=== PATIENT | male | born 1960 | race Caucasian/White ===

== ENCOUNTER 2023-02-07 18:21 | Inpatient (IN) | payer BC, SELFPAY ==
[~2023-02-07] VITALS: Ht 175.3 cm; Wt 106.8 kg
[2023-02-07] MEDS ORDERED: normal saline 1000ml 1,000 ML IV ONE (20:25)
[2023-02-07] MEDS ORDERED: ketorolac tromethamine 15mg/ml inj. IV ONE (20:25)
[2023-02-07] MEDS ORDERED: morphine 4 MG/ML inj SYRINge IV ONE ×2 (20:25→22:55)
[2023-02-07] MEDS ORDERED: ondansetron/PF 4mg/2ml inj IV ONE ×2 (20:25→22:55)
[2023-02-07 20:54] LABS: BASOPHILS # (AUTO) 0.1 X10'3 (0-0.2); BASOPHILS % (AUTO) 0.5 % (0-1); EOSINOPHILS % (AUTO) 0.3 % (0-6); HEMOGLOBIN 16.4 g/dl (14.0-17.9); LYMPHOCYTES # (AUTO) 1.2 X10'3 (1.1-4.8); LYMPHOCYTES % (AUTO) 7.7 % (21-51); MEAN CORPUSCULAR HEMOGLOBIN 28.4 PG (27.0-31.0); MEAN CORPUSCULAR HGB CONC 33.4 g/dL (33.0-36.5); MEAN PLATELET VOLUME 8.3 FL (7.4-10.4); MONOCYTES # (AUTO) 0.9 X10'3 (0-0.9); MONOCYTES % (AUTO) 5.6 % (2-12); NEUTROPHILS # (AUTO) 13.7 X10'3 (1.8-7.7); NEUTROPHILS % (AUTO) 85.9 % (42-75); PLATELET COUNT 167 X10'3 (140-440); RED BLOOD COUNT 5.77 X10'6 (4.70-6.10); RED CELL DISTRIBUTION WIDTH 14.3 % (11.5-14.5); WHITE BLOOD COUNT 15.9 X10'3 (4.5-11.0)
[2023-02-07 21:08] LABS: ALANINE AMINOTRANSFERASE 34 U/L (12-78); ALBUMIN 4.1 G/DL (3.4-5.0); ALBUMIN/GLOBULIN RATIO 1.4 (1.1-1.5); ALKALINE PHOSPHATASE 75 IU/L (46-116); ANION GAP 12 (8-16); ASPARTATE AMINO TRANSFERASE 26 U/L (10-37); BILIRUBIN,TOTAL 0.6 MG/DL (0.1-1.0); BLOOD UREA NITROGEN 23 MG/DL (7-18); BUN/CREATININE RATIO 12.6 (10.0-20.0); CALCIUM 8.7 MG/DL (8.5-10.1); CHLORIDE 106 MMOL/L (99-107); CREATININE 1.83 MG/DL (0.60-1.10); GLUCOSE 124 MG/DL (70-104); LIPASE < 50 U/L (73-393); POTASSIUM 4.4 MMOL/L (3.5-5.1); SODIUM 144 MMOL/L (135-145); TOTAL CARBON DIOXIDE 26.1 MMOL/L (24-32); eGFR 37 ML/MIN
[2023-02-07] MEDS ORDERED: CefTRIAXone 2gm/D5W 50ml BAG 50 ML IV ONE (22:35)
[2023-02-07 23:00] LABS: CLARITY,URINE SLIGHTLY CLOUDY (Clear); COLOR,URINE YELLOW (Yellow); GLUCOSE, URINE NEGATIVE (Neg); KETONES,URINE NEGATIVE (Neg); LEUKOCYTE ESTERASE ,URINE TRACE (Neg); NITRITES, URINE NEGATIVE (Neg); OCCULT BLOOD,URINE LARGE (Neg); PROTEIN,URINE 30 mg/dl (Neg); UROBILINOGEN,URINE 0.2 E.U/dL (0.2-1.0)
[2023-02-07 23:17] LABS: UA COLLECTION TYPE CLN CATCH MIDSTREAM
[2023-02-07 23:22] LABS: BACTERIA,URINE NONE SEEN /HPF (Neg); MUCUS STRANDS MODERATE /LPF (Neg); RBC,URINE 50-100 /HPF (0-2); SQUAMOUS EPITHELIAL CELL,UR FEW /LPF (FEW); WBC,URINE 0-4 /HPF (0-4)
[2023-02-07 23:23] LABS: SPERM FEW /HPF (NEGATIVE)
[2023-02-07] MEDS ORDERED: acetaminophen 325mg tablet PO PRN (23:40)
[2023-02-07] MEDS ORDERED: magnesium hydroxide 30ml (MOM) UD suspension PO PRN (23:40)
[2023-02-07] MEDS ORDERED: magnesium 2GM in 50ml NS 50 ML IV PRN (23:40)
[2023-02-07] MEDS ORDERED: morphine 2 MG/ML inj. syringe IV PRN (23:40)
[2023-02-07] MEDS ORDERED: mag hydrox/Alum hydrox/simeth 30ml oral suspension PO PRN (23:40)
[2023-02-07] MEDS ORDERED: magnesium 4gm in 100ml NS 100 ML IV PRN (23:40)
[2023-02-07] MEDS ORDERED: potassium Cl 20 mEq SR tablet PO PRN ×2 (23:40)
[2023-02-07] MEDS ORDERED: potassium Cl 40MEQ/1/2NS 520ml 520 ML IV PRN (23:40)
[2023-02-07] MEDS ORDERED: ondansetron/PF 4mg/2ml inj IV PRN (23:40)
[2023-02-07] MEDS ORDERED: magnesium Cl slow-release 64mg tablet PO PRN (23:40)
[2023-02-08] VITALS (21 sets, daily range): BP systolic 127–177; BP diastolic 77–105
--- NOTE | 2023-02-08 00:47 | NUR ---
Report given to me by Shirley in the ER on the phone and I will give report to Elodia EDWARDS when she is back from lunch.
[2023-02-08] MEDS: potassium Cl 20mEq in NS 1,000 ML IV SCH ×3 (01:11→23:50)
--- NOTE | 2023-02-08 02:16 | NUR ---
RC'D REPORT FROM FALL INTERN AND ASSUMED CARE OF PATIENT. RESTING IN BED AT THIS TIME, STATES PAIN 2/10. EDUCATED ON HOSPITAL ROUTINE, PLAN FOR SURG AT 0900 AND SKIN CHECK COMPLETED. NS INFUSING ORDERED. PATIENT GIVEN BASIN OF WATER AND BATHED IN BATHROOM WHILE LINEN CHANGED ON BED. SKIN WIPED DOWN WITH CHLORHEXIDINE FOR SURG AND RESTING COMFORTABLY AT THIS TIME. WILL CHECK WITH PATIENT AND ASSESS PAIN LEVEL WHEN ABLE TO HAVE PAIN MEDS. 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
--- NOTE | 2023-02-08 06:39 | NUR ---
Problems reprioritized. Patient report given, questions answered & plan of care reviewed with WILFRID EDWARDS. WILFRID AWARE ZAIRE ALEXANDRE/FRIEND WILL BE IN TO CLOCK ASSEMBLER PATIENT'S WALLET WITH MONEY AND CREDIT CARDS WELL KEYS TO HIS CAR THAT IS IN THE ER PARKING AREA, SHE WILL MOVE HIS CARE OUT OF THAT AREA. SECURITY NOTIFIED PATIENT IS ADMITTED TO THIS UNIT WELL THE MAKE AND MODEL OF HIS CARE.
[2023-02-08 07:31] LABS: BASOPHILS % (AUTO) 0.4 % (0-1); EOSINOPHILS # (AUTO) 0.1 X10'3 (0-0.9); EOSINOPHILS % (AUTO) 1.5 % (0-6); HEMATOCRIT 45.2 % (42.0-52.0); HEMOGLOBIN 15.1 g/dl (14.0-17.9); LYMPHOCYTES # (AUTO) 2.4 X10'3 (1.1-4.8); LYMPHOCYTES % (AUTO) 24.3 % (21-51); MEAN CORPUSCULAR HEMOGLOBIN 28.7 PG (27.0-31.0); MEAN CORPUSCULAR HGB CONC 33.4 g/dL (33.0-36.5); MEAN CORPUSCULAR VOLUME 85.8 FL (78-98); MEAN PLATELET VOLUME 8.7 FL (7.4-10.4); MONOCYTES # (AUTO) 0.6 X10'3 (0-0.9); MONOCYTES % (AUTO) 6.2 % (2-12); NEUTROPHILS # (AUTO) 6.6 X10'3 (1.8-7.7); NEUTROPHILS % (AUTO) 67.6 % (42-75); PLATELET COUNT 166 X10'3 (140-440); RED BLOOD COUNT 5.27 X10'6 (4.70-6.10); RED CELL DISTRIBUTION WIDTH 14.5 % (11.5-14.5); WHITE BLOOD COUNT 9.7 X10'3 (4.5-11.0)
[2023-02-08 07:38] LABS: ALANINE AMINOTRANSFERASE 34 U/L (12-78); ALBUMIN 3.6 G/DL (3.4-5.0); ALBUMIN/GLOBULIN RATIO 1.3 (1.1-1.5); ALKALINE PHOSPHATASE 67 IU/L (46-116); ANION GAP 12 (8-16); ASPARTATE AMINO TRANSFERASE 23 U/L (10-37); BILIRUBIN,TOTAL 0.5 MG/DL (0.1-1.0); BLOOD UREA NITROGEN 20 MG/DL (7-18); BUN/CREATININE RATIO 13.2 (10.0-20.0); CALCIUM 8.5 MG/DL (8.5-10.1); CHLORIDE 109 MMOL/L (99-107); CREATININE 1.51 MG/DL (0.60-1.10); GLUCOSE 98 MG/DL (70-104); MAGNESIUM 2.1 MG/DL (1.5-2.4); POTASSIUM 4.3 MMOL/L (3.5-5.1); SODIUM 147 MMOL/L (135-145); TOTAL CARBON DIOXIDE 25.8 MMOL/L (24-32); TOTAL PROTEIN 6.4 G/DL (6.4-8.2); eGFR 47 ML/MIN
[2023-02-08] MEDS: K and/or MAG REPLACEMENT MC SCH ×2 (08:00→20:00)
[2023-02-08] MEDS ORDERED: docusate sod 100mg capsule PO SCH (08:00)
[2023-02-08] MEDS ORDERED: ringers solution, lacted 1,000 ML IV SCH (08:05)
[2023-02-08] MEDS ORDERED: ondansetron/PF 4mg/2ml inj IV PRN (08:05)
[2023-02-08] MEDS ORDERED: fentaNYL/PF 50MCG/1 ML 2ML syringe IV PRN ×2 (08:05)
[2023-02-08] MEDS ORDERED: hydrALAZINE 20mg/ml inj. IV PRN (08:05)
[2023-02-08] MEDS ORDERED: labetalol 20mg/4ml (5mg/ml) syringe IV PRN (08:05)
[2023-02-08] MEDS ORDERED: morphine 4 MG/ML inj SYRINge IV PRN (08:05)
[2023-02-08] MEDS ORDERED: morphine 2 MG/ML inj. syringe IV PRN (08:05)
[2023-02-08] MEDS: CefTRIAXone/D5W-Rocephin 1gm 50 ML IV SCH (08:14)
[2023-02-08] MEDS: morphine 2 MG/ML inj. syringe IV PRN ×2 (08:22→22:24)
[2023-02-08] MEDS ORDERED: fentaNYL/PF 50MCG/1 ML 2ML syringe ONE (08:47)
[2023-02-08] MEDS ORDERED: propofol inj 20 ML IV ONE (08:47)
[2023-02-08] MEDS ORDERED: midazolam 1 mg/ML 2ml injection ONE (08:47)
[2023-02-08] MEDS ORDERED: LIDOcaine 2% (20mg/ml) 5ml vial ONE (08:48)
[2023-02-08] MEDS ORDERED: ondansetron/PF 4mg/2ml inj ONE (08:49)
[2023-02-08] MEDS ORDERED: dexamethasone sod phosphate 4mg/ml inj. ONE (08:49)
[2023-02-08] MEDS ORDERED: sevoflurane 250ml liquid IH ONE (09:05)
[2023-02-08] MEDS ORDERED: iohexol 300 MG/1 ML 50ml polymer ONE (09:06)
--- NOTE | 2023-02-08 10:10 | NUR ---
NURSING RECEIVED A LATE CALL FROM OR AND ARRIVED SHORTLY AFTER 1000. ANESTHESIA WAS IN WITH PT WHEN NURSING ARRIVED: Received from OR via HOSPITAL BED, accompanied by Anesthesiologist DR OSBORNE and report given by Anesthesiologist. PT IS AWAKE AND ANSWERING QUESTIONS APPROPRIATELY AND FOLLOWING COMMANDS. PT IS ON BEDSIDE MONITOR AND VSS. PT IS RECEIVING 8L O2 TO MASK AND TOLERATING WILL WITH O2 SAT >95%. WILL TITRATE DOWN PT TOLERATES. PT HAS 20G PIV TO RT AC WITH LR INFUSING ORDERED. PT DENIES PAIN AT THIS TIME AND HAS NO C/O OF NAUSEA. WILL CONTINUE TO ASSESS.
--- NOTE | 2023-02-08 11:01 | NUR ---
PATIENT HAS MET ALL CRITERIA FOR TRANSFER TO THE ORTHO FLOOR. VSS. DRESSINGS INTACT. BED LOW, CALL LIGHT PRESENT AND 2 RAILS UP. RN PRESENT TO ACCEPT CARE OF PATIENT AND REPORT HAS BEEN CALLED TO MEGA RN. ALL QUESTIONS ANSWERED TO ACCEPTING RN.
[2023-02-08] MEDS ORDERED: lisinopril 10 MG tablet PO ONE (12:05)
[2023-02-08] MEDS ORDERED: SUMA100T16 PO (12:18)
[2023-02-08] MEDS ORDERED: AMIT25TA9 PO (12:20)
--- NOTE | 2023-02-08 18:32 | NUR ---
Report to Elodia EDWARDS
[2023-02-08] MEDS: sennosides/docusate sodium tablet PO SCH (22:24)
[2023-02-09 06:00] VITALS: BP 154/83
--- NOTE | 2023-02-09 06:49 | NUR ---
Problems reprioritized. Patient report given, questions answered & plan of care reviewed with WILFRID EDWARDS.
[2023-02-09] MEDS: K and/or MAG REPLACEMENT MC SCH (08:00)
[2023-02-09] MEDS ORDERED: amLODIPine 5mg tablet PO SCH (08:00)
[2023-02-09 09:06] LABS: ALANINE AMINOTRANSFERASE 30 U/L (12-78); ALBUMIN 3.8 G/DL (3.4-5.0); ALBUMIN/GLOBULIN RATIO 1.2 (1.1-1.5); ALKALINE PHOSPHATASE 66 IU/L (46-116); ANION GAP 11 (8-16); ASPARTATE AMINO TRANSFERASE 21 U/L (10-37); BILIRUBIN,TOTAL 0.7 MG/DL (0.1-1.0); BLOOD UREA NITROGEN 16 MG/DL (7-18); BUN/CREATININE RATIO 13.2 (10.0-20.0); CALCIUM 8.8 MG/DL (8.5-10.1); CHLORIDE 106 MMOL/L (99-107); CREATININE 1.21 MG/DL (0.60-1.10); GLUCOSE 104 MG/DL (70-104); MAGNESIUM 1.9 MG/DL (1.5-2.4); POTASSIUM 4.1 MMOL/L (3.5-5.1); SODIUM 141 MMOL/L (135-145); TOTAL CARBON DIOXIDE 24.4 MMOL/L (24-32); eGFR 60 ML/MIN
[2023-02-09 09:07] LABS: BASOPHILS % (AUTO) 0.2 % (0-1); EOSINOPHILS % (AUTO) 0.2 % (0-6); HEMATOCRIT 47.5 % (42.0-52.0); HEMOGLOBIN 15.7 g/dl (14.0-17.9); LYMPHOCYTES # (AUTO) 2.1 X10'3 (1.1-4.8); LYMPHOCYTES % (AUTO) 17.5 % (21-51); MEAN CORPUSCULAR HEMOGLOBIN 28.3 PG (27.0-31.0); MEAN CORPUSCULAR HGB CONC 32.9 g/dL (33.0-36.5); MEAN PLATELET VOLUME 8.7 FL (7.4-10.4); MONOCYTES # (AUTO) 0.6 X10'3 (0-0.9); MONOCYTES % (AUTO) 5.1 % (2-12); NEUTROPHILS # (AUTO) 9.2 X10'3 (1.8-7.7); PLATELET COUNT 182 X10'3 (140-440); RED BLOOD COUNT 5.52 X10'6 (4.70-6.10); RED CELL DISTRIBUTION WIDTH 14.8 % (11.5-14.5)
[2023-02-09] MEDS: CefTRIAXone/D5W-Rocephin 1gm 50 ML IV SCH (09:08)
[2023-02-09] MEDS: sennosides/docusate sodium tablet PO SCH (09:11)
[2023-02-09 10:00] VITALS: BP 167/75
[2023-02-09] MEDS ORDERED: LISI10TA27 PO (10:01)
== END 2023-02-09 12:25 | disposition home or self-care (01) | DRG 661 ==
LOC: ER 18:22 → ORTHO 4S 23:39
PROVIDERS: ADMIT Internal Medicine; ATTEND Internal Medicine
PROC: BT1F1ZZ Fluoroscopy of Left Kidney, Ureter and Bladder using Low Osmolar Contrast (ICD-10-PCS; 2023-02-08)
PROC: 0T778DZ Dilation of Left Ureter with Intraluminal Device, Via Natural or Artificial Opening Endoscopic (ICD-10-PCS; principal; 2023-02-08 09:05)
DX: N13.2 Hydronephrosis with renal and ureteral calculous obstruction (principal); D72.829 Elevated white blood cell count, unspecified; N17.9 Acute kidney failure, unspecified; N28.82 Megaloureter; G43.909 Migraine, unspecified, not intractable, without status migrainosus; N40.0 Benign prostatic hyperplasia without lower urinary tract symptoms; Z87.442 Personal history of urinary calculi
CPT/HCPCS: 99285; Z7506; 36415; 74018; 74176; 76000; 80053; 81001; 83690; 83735; 85025; 87081; 87088; A4618; A6258; C1769; C2617; G0378; J0696; J1100; J1885; J2250; J2270; J2405; J2704; J3010; J3480; J3490; J7030; Q9967